=== PATIENT | male | born 1985 | race Two or more races ===

== ENCOUNTER 2018-05-18 12:51 | Emergency (ER) | payer OTHER ==
[~2018-05-18] VITALS: Ht 180.3 cm; Wt 65.8 kg
== END 2018-05-18 17:27 | disposition home or self-care (01) ==
LOC: ER 12:51
DX: N20.1 Calculus of ureter (principal)

== ENCOUNTER 2021-06-13 14:07 | Emergency (ER) | payer OTHER ==
[~2021-06-13] VITALS: Ht 180.3 cm; Wt 75.3 kg
== END 2021-06-13 21:28 | disposition home or self-care (01) ==
LOC: ER 14:07
DX: R42 Dizziness and giddiness (principal)

== ENCOUNTER 2021-11-21 17:30 | Emergency (ER) | payer OTHER ==
[~2021-11-21] VITALS: Ht 180.3 cm; Wt 74.8 kg
== END 2021-11-21 23:38 | disposition home or self-care (01) ==
LOC: ER 17:30
DX: N13.2 Hydronephrosis with renal and ureteral calculous obstruction (principal)

== ENCOUNTER 2023-07-29 18:31 | Emergency (ER) | payer OTHER ==
[~2023-07-29] VITALS: Ht 177.8 cm; Wt 72.6 kg
[2023-07-29 20:40] LABS: HEMATOCRIT 44.6 % (39.0-48.0); HEMOGLOBIN 15.4 g/dL (13-16.00); MEAN CELL VOLUME 87.4 fL (80.0-100.00); MEAN CORPUSCULAR HEMOGLOBIN 30.2 pg (27.00-32.0); MEAN CORPUSCULAR HGB CONC 34.6 g/dl (32.0-36.0); PLATELET COUNT 181 K/uL (150-450); RED BLOOD COUNT 5.09 M/uL (4.00-6.00); RED CELL DISTRIBUTION WIDTH 12.5 % (11.5-14.5)
[2023-07-29] MEDS ORDERED: MEDROLPACK PO (20:55)
[2023-07-29] MEDS ORDERED: MUCINEX DM ER1 EACH PO (20:55)
[2023-07-29] MEDS ORDERED: OSEL75CA PO (20:55)
== END 2023-07-29 21:15 | disposition home or self-care (01) ==
LOC: ER 18:31
PROVIDERS: General Practice
DX: J10.1 Influenza due to other identified influenza virus with other respiratory manifestations (principal); J45.909 Unspecified asthma, uncomplicated; Z20.822 Contact with and (suspected) exposure to COVID-19

== ENCOUNTER 2024-09-05 14:58 | Emergency (ER) | payer OTHER ==
[~2024-09-05] VITALS: Ht 180.3 cm; Wt 74.8 kg
[~2024-09-05 14:58] MED LIST: MEDROLPACK PO; MUCINEX DM ER1 EACH PO; OSEL75CA PO
[2024-09-05 18:10] LABS: HEMOGLOBIN 15.4 g/dL (13-16.00); MEAN CELL VOLUME 87.5 fL (80.0-100.00); MEAN CORPUSCULAR HEMOGLOBIN 29.8 pg (27.00-32.0); MEAN CORPUSCULAR HGB CONC 34.1 g/dl (32.0-36.0); PLATELET COUNT 258 K/uL (150-450); RED BLOOD COUNT 5.15 M/uL (4.00-6.00)
[2024-09-05] MEDS ORDERED: ACETAMINOPHEN500 M1 PO (19:51)
[2024-09-05] MEDS ORDERED: GILTUSS COUGH-118 M1 PO (19:51)
[2024-09-05] MEDS ORDERED: ZITHROMAX TRI-500 MG PO (19:51)
== END 2024-09-05 20:01 | disposition home or self-care (01) ==
LOC: ER 15:01
PROVIDERS: Preventive Medicine Public Health & General Preventive Medicine
DX: J06.9 Acute upper respiratory infection, unspecified (principal); Z20.822 Contact with and (suspected) exposure to COVID-19; Z87.09 Personal history of other diseases of the respiratory system

== ENCOUNTER 2025-01-22 13:37 | Emergency (ER) | payer OTHER ==
[~2025-01-22] VITALS: Ht 180.3 cm; Wt 72.6 kg
[~2025-01-22 13:37] MED LIST changes: +ACETAMINOPHEN500 M1 PO; +GILTUSS COUGH-118 M1 PO; +ZITHROMAX TRI-500 MG PO
[2025-01-22] MEDS ORDERED: ACETAMINOPHEN 500 MG GEL..CAP PO ONE ×2 (16:20→16:30)
[2025-01-22] MEDS ORDERED: GUAIFENESIN 200 MG/10 ML BLIST.PACK PO ONE (16:21)
[2025-01-22 17:38] LABS: COVID-19 AG NEGATIVE (NEGATIVE)
[2025-01-22 17:42] LABS: INFLUENZA A AG NEGATIVE (NEGATIVE); INFLUENZA B AG NEGATIVE (NEGATIVE)
[2025-01-22] MEDS ORDERED: GUAIFENESIN 200 MG/10 ML BLIST.PACK PO SCH (18:00)
== END 2025-01-22 18:12 | disposition home or self-care (01) ==
LOC: ER 13:40
PROVIDERS: General Practice
DX: B34.9 Viral infection, unspecified (principal); J00 Acute nasopharyngitis [common cold]; Z20.822 Contact with and (suspected) exposure to COVID-19

== ENCOUNTER 2025-03-04 12:43 | Emergency (ER) | payer OTHER ==
[~2025-03-04] VITALS: Ht 180.3 cm; Wt 74.8 kg
[2025-03-04] MEDS ORDERED: ORPHENADRINE CITRATE 30 MG/ML AMPUL IM ONE (14:30)
[2025-03-04] MEDS ORDERED: KETOROLAC TROMETHAMINE 30 MG VIAL IM ONE (14:30)
[2025-03-04] MEDS ORDERED: NORFLEX100MG PO (16:12)
[2025-03-04] MEDS ORDERED: DICLOFENAC SODI50 MG PO (16:12)
== END 2025-03-04 17:16 ==
LOC: ER 12:43
DX: M54.50 Low back pain, unspecified (principal); M54.16 Radiculopathy, lumbar region